=== PATIENT | female | born 1955 | race Caucasian/White ===

== ENCOUNTER 2020-11-06 22:12 | Emergency (ER) | payer MEDICARE, MEDICAID | END 2020-11-06 23:55 | disposition home or self-care (01) | LOC: CSHERS 22:12 | DX: Z43.1 Encounter for attention to gastrostomy (principal); I10 Essential (primary) hypertension; J44.9 Chronic obstructive pulmonary disease, unspecified; K21.9 Gastro-esophageal reflux disease without esophagitis; I25.2 Old myocardial infarction | CPT/HCPCS: 43762; 74018 ==

== ENCOUNTER 2020-11-20 20:48 | Inpatient (IN) | payer MEDICARE, MEDICAID ==
[2020-11-20 21:35] LABS: Hemoglobin 12.2 g/dL (12.0-15.5); Mean Corpuscular HGB CONC 33.1 g/dL (32.0-36.0); Mean Corpuscular Hemoglobin 30.4 pg (27.0-33.0); Mean Platelet Volume 10.2 fl (7.4-10.4); Platelet Count 255 10x3/uL (150-450); RBC Distribution Width 13.6 % (11.5-14.5); Red Blood Cell (RBC) Count 4.01 10x6/uL (3.90-5.03); White Blood Cell (WBC) Count 26.8 10x3/uL (3.5-10.5)
[2020-11-20 21:38] LABS: MDiff Complete? YES
[2020-11-20 21:39] LABS: ALT (SGPT) 14 U/L (8-55); AST (SGOT) 19 U/L (5-34); Albumin 3.5 g/dL (3.4-4.8); Alkaline Phosphatase 63 U/L (40-110); Anion Gap 17 mmol/L (10-20); BUN (Urea Nitrogen) 26 mg/dL (9.8-20.1); Bilirubin, Total 0.8 mg/dL (0.2-1.2); Calc. Creatinine Clearance 0 mL/min (70-130); Calcium 9.1 mg/dL (7.8-10.44); Carbon Dioxide 24 mmol/L (23-31); Chloride 99 mmol/L (98-107); Globulin 3.5 g/dL (2.4-3.5); Glucose 112 mg/dL (80-115); Potassium 4.6 mmol/L (3.5-5.1); Sodium 135 mmol/L (136-145)
[2020-11-20 22:51] LABS: Band 1 % (5-11); Lymphocytes 6 % (21-51); Monocytes 4 % (0-10); Neutrophil 87 % (42-75); Reactive Lymphocytes 2 % (0-10)
[2020-11-20 22:55] LABS: Platelet Morphology Comment Appears Adequate; RBC Morphology Normal
[2020-11-20] MEDS ORDERED: Cefepime 1 GM VIAL ONE (23:43)
[2020-11-20] MEDS ORDERED: Guaifenesin DM 100-10/5 ML UDCUP PO PRN (23:53)
[2020-11-20] MEDS ORDERED: Acetaminophen 325 MG TAB PO PRN (23:53)
[2020-11-20] MEDS ORDERED: Ondansetron PF 4 MG/2 ML Vial IVP PRN (23:53)
[2020-11-20] MEDS ORDERED: Calcium Carbonate 500 MG ChewTAB PO PRN (23:53)
[2020-11-21] MEDS ORDERED: Sodium Chloride 0.9% 1,000 ML IV SCH
[2020-11-21 00:07] LABS: Lactic Acid 1.4 mmol/L (0.5-2.2)
[2020-11-21 00:55] LABS: SARS-CoV-2 NAA Rapid Test Not Detected (NotDetected)
[2020-11-21] MEDS ORDERED: methylPREDNISolone Sod Succ 40 MG VIAL ONE (03:29)
[2020-11-21 06:16] LABS: Anion Gap 15 mmol/L (10-20); BUN (Urea Nitrogen) 22 mg/dL (9.8-20.1); Calc. Creatinine Clearance 0 mL/min (70-130); Calcium 8.5 mg/dL (7.8-10.44); Carbon Dioxide 20 mmol/L (23-31); Chloride 106 mmol/L (98-107); Glucose 93 mg/dL (80-115); Potassium 4.5 mmol/L (3.5-5.1); Sodium 136 mmol/L (136-145)
[2020-11-21] MEDS: Famotidine/PF 20 mg/2ml Vial SLOW IVP SCH ×2 (07:20→23:18)
[2020-11-21 07:49] LABS: Hemoglobin 11.2 g/dL (12.0-15.5); Mean Corpuscular HGB CONC 33.7 g/dL (32.0-36.0); Mean Corpuscular Hemoglobin 30.3 pg (27.0-33.0); Mean Corpuscular Volume 89.7 fl (81.6-98.3); Mean Platelet Volume 10.1 fl (7.4-10.4); Platelet Count 200 10x3/uL (150-450); RBC Distribution Width 13.8 % (11.5-14.5); White Blood Cell (WBC) Count 20.9 10x3/uL (3.5-10.5)
[2020-11-21] MEDS ORDERED: Loratadine 10 MG TAB PO PRN (08:05)
[2020-11-21] MEDS ORDERED: Sodium Chloride 0.65% Nasal 44 ML BOT EA NARE PRN (08:05)
[2020-11-21] MEDS ORDERED: hydrALAZINE 20 MG/ML VIAL SLOW IVP PRN (08:05)
[2020-11-21] MEDS ORDERED: GUAIFENESIN SF SOLN 200 MG/10 ML UDCUP PO PRN (08:05)
[2020-11-21] MEDS ORDERED: Ondansetron ODT 4 MG TAB SL PRN (08:05)
[2020-11-21] MEDS ORDERED: Loperamide HCl 2 MG CAP PO PRN (08:05)
[2020-11-21] MEDS ORDERED: Cepastat Lozenges 1 LOZ PO PRN (08:05)
[2020-11-21] MEDS ORDERED: Zolpidem Tartrate 5 MG TAB PO PRN (08:05)
[2020-11-21] MEDS ORDERED: Senokot S 8.6-50 MG TAB PO PRN (08:05)
[2020-11-21] MEDS ORDERED: Bisacodyl 5 MG TAB PO PRN (08:05)
[2020-11-21] MEDS ORDERED: Eucerin (Mineral Oil/Petrolatum,White) 30 gm Jar TOP PRN (08:05)
[2020-11-21 08:16] LABS: Bilirubin Neg (Negative); Blood, Urine 10 (Negative); Glucose, Urine (Dipstick) Normal (Negative); Ketone, Urine Negative (Negative); Leukocyte 100 (Negative); Nitrite Negative (Negative); Protein, Urine (Dipstick) Negative (Neg-Trace); Urobilinogen Normal mg/dL (Less than 2)
[2020-11-21 08:18] LABS: Clarity Clear (Clear)
[2020-11-21 08:20] LABS: Urine Culture Reflex No No
[2020-11-21 08:28] LABS: Bacteria/HPF 1+ HPF (None Seen)
[2020-11-21 08:57] LABS: MDiff Complete? YES
[2020-11-21 09:00] LABS: Band 16 % (5-11); Lymphocytes 2 % (21-51); Monocytes 1 % (0-10); Neutrophil 81 % (42-75)
[2020-11-21 09:01] LABS: Platelet Morphology Comment Appears Adequate
[2020-11-21 09:29] LABS: Strep pneumo Urine Ag NEGATIVE (NEGATIVE)
[2020-11-21 09:30] LABS: Legionella Urinary Ag Negative (Negative)
[2020-11-21] MEDS: Mometasone/Formoterol 200/5 60 PUFF INH SCH ×2 (09:34→20:29)
[2020-11-21] MEDS ORDERED: Piperacillin/Tazobactam 3.375 GM VIAL ONE (10:00)
[2020-11-21] MEDS ORDERED: Sodium Chloride 0.9% 100 ML ONE (10:00)
[2020-11-21] MEDS: Piperacillin/Tazobactam 3.375 GM in Sodium Chloride 0.9% 100 ML IVPB SCH ×3 (10:14→20:30)
[2020-11-21 10:19] VITALS: BMI 21.7
[2020-11-21] MEDS: Atorvastatin Calcium 40 MG TAB PO SCH (10:19)
[2020-11-21] MEDS: Clopidogrel Bisulfate 75 MG TAB PO SCH (10:20)
[2020-11-21] MEDS: Carvedilol 3.125 MG TAB PO SCH ×2 (10:20→16:11)
[2020-11-21] MEDS: Enoxaparin Sodium 30 MG/0.3 ML SYRINGE SC SCH (10:20)
[2020-11-21] MEDS: Aspirin 81 mg Enteric Coated Tablet PO SCH (10:20)
[2020-11-21] MEDS ORDERED: VANCOMYCIN 1.25 GM/250 ML BAG 1.25 GM in Premix Bag 1 BAG IVPB SCH (12:00)
[2020-11-21] MEDS: methylPREDNISolone Sod Succ 40 MG VIAL IVP SCH (16:11)
[2020-11-21] MEDS: traZODone HCl 50 MG TAB PO SCH (20:30)
[2020-11-21] MEDS: Vancomycin HCl 1 GM in Sodium Chloride 0.9% 250 ML 250 ML IVPB SCH (23:18)
[2020-11-21] MEDS ORDERED: Vancomycin HCl 1 GM, Admixture Fee 1 EACH in Sodium Chloride 0.9% 250 ML 250 ML IVPB SCH (23:59)
[2020-11-22] MEDS: methylPREDNISolone Sod Succ 40 MG VIAL IVP SCH ×2 (03:17→16:55)
[2020-11-22] MEDS: Piperacillin/Tazobactam 3.375 GM in Sodium Chloride 0.9% 100 ML IVPB SCH ×4 (03:17→20:32)
[2020-11-22 04:24] LABS: #Monocytes 0.5 10x3/uL (0.0-1.1); #Neutrophils 17.6 10x3/uL (1.5-8.4); %Basophils 0.2 % (0.0-2.0); %Lymphocytes 3.3 % (18.0-47.0); %Monocytes 2.5 % (0.0-10.0); %Neutrophils 92.1 % (40.0-75.0); Hemoglobin 12.1 g/dL (12.0-15.5); Mean Corpuscular HGB CONC 33.9 g/dL (32.0-36.0); Mean Corpuscular Hemoglobin 30.1 pg (27.0-33.0); Mean Corpuscular Volume 88.8 fl (81.6-98.3); Mean Platelet Volume 10.7 fl (7.4-10.4); Platelet Count 188 10x3/uL (150-450); RBC Distribution Width 13.3 % (11.5-14.5); Red Blood Cell (RBC) Count 4.02 10x6/uL (3.90-5.03); White Blood Cell (WBC) Count 19.1 10x3/uL (3.5-10.5)
[2020-11-22 04:38] LABS: Lactic Acid 0.9 mmol/L (0.5-2.2)
[2020-11-22 04:44] LABS: ALT (SGPT) 24 U/L (8-55); AST (SGOT) 37 U/L (5-34); Albumin 3.3 g/dL (3.4-4.8); Alkaline Phosphatase 71 U/L (40-110); Anion Gap 14 mmol/L (10-20); BUN (Urea Nitrogen) 15 mg/dL (9.8-20.1); Bilirubin, Total 0.6 mg/dL (0.2-1.2); Calc. Creatinine Clearance 61 mL/min (70-130); Calcium 9.5 mg/dL (7.8-10.44); Carbon Dioxide 21 mmol/L (23-31); Chloride 102 mmol/L (98-107); Globulin 3.7 g/dL (2.4-3.5); Glucose 185 mg/dL (80-115); Sodium 133 mmol/L (136-145)
[2020-11-22] MEDS: Mometasone/Formoterol 200/5 60 PUFF INH SCH ×2 (07:55→19:35)
[2020-11-22] MEDS: Enoxaparin Sodium 30 MG/0.3 ML SYRINGE SC SCH (10:37)
[2020-11-22] MEDS: Aspirin 81 mg Enteric Coated Tablet PO SCH (10:37)
[2020-11-22] MEDS: Amlodipine 10 MG TAB PO SCH (10:37)
[2020-11-22] MEDS: Carvedilol 3.125 MG TAB PO SCH ×2 (10:38→18:36)
[2020-11-22] MEDS: Clopidogrel Bisulfate 75 MG TAB PO SCH (10:38)
[2020-11-22] MEDS: Atorvastatin Calcium 40 MG TAB PO SCH (10:38)
[2020-11-22] MEDS: Nicotine 21 MG PATCH TD SCH (11:02)
[2020-11-22] MEDS: traZODone HCl 50 MG TAB PO SCH (20:32)
[2020-11-22] MEDS: Vancomycin HCl 1 GM in Sodium Chloride 0.9% 250 ML 250 ML IVPB SCH (23:38)
[2020-11-22] MEDS: Famotidine/PF 20 mg/2ml Vial SLOW IVP SCH (23:38)
[2020-11-23] MEDS: Piperacillin/Tazobactam 3.375 GM in Sodium Chloride 0.9% 100 ML IVPB SCH ×4 (03:13→20:00)
[2020-11-23] MEDS: methylPREDNISolone Sod Succ 40 MG VIAL IVP SCH (03:13)
[2020-11-23 05:45] LABS: #Monocytes 0.3 10x3/uL (0.0-1.1); #Neutrophils 9.6 10x3/uL (1.5-8.4); %Basophils 0.1 % (0.0-2.0); %Lymphocytes 6.6 % (18.0-47.0); %Neutrophils 88.9 % (40.0-75.0); Hemoglobin 11.8 g/dL (12.0-15.5); Mean Corpuscular HGB CONC 33.7 g/dL (32.0-36.0); Mean Corpuscular Hemoglobin 30.1 pg (27.0-33.0); Mean Corpuscular Volume 89.3 fl (81.6-98.3); Mean Platelet Volume 10.9 fl (7.4-10.4); Platelet Count 221 10x3/uL (150-450); RBC Distribution Width 13.1 % (11.5-14.5); Red Blood Cell (RBC) Count 3.92 10x6/uL (3.90-5.03); White Blood Cell (WBC) Count 10.8 10x3/uL (3.5-10.5)
[2020-11-23 06:06] LABS: Anion Gap 14 mmol/L (10-20); BUN (Urea Nitrogen) 15 mg/dL (9.8-20.1); Calc. Creatinine Clearance 66 mL/min (70-130); Calcium 8.9 mg/dL (7.8-10.44); Carbon Dioxide 23 mmol/L (23-31); Chloride 100 mmol/L (98-107); Glucose 228 mg/dL (80-115); Potassium 3.7 mmol/L (3.5-5.1); Sodium 133 mmol/L (136-145)
[2020-11-23] MEDS: Mometasone/Formoterol 200/5 60 PUFF INH SCH ×2 (07:28→20:00)
[2020-11-23] MEDS ORDERED: Enoxaparin Sodium 30 MG/0.3 ML SYRINGE ONE (08:02)
[2020-11-23] MEDS: Carvedilol 3.125 MG TAB PO SCH ×2 (09:54→16:44)
[2020-11-23] MEDS: Atorvastatin Calcium 40 MG TAB PO SCH (09:55)
[2020-11-23] MEDS: Clopidogrel Bisulfate 75 MG TAB PO SCH (09:55)
[2020-11-23] MEDS: Amlodipine 10 MG TAB PO SCH (09:55)
[2020-11-23] MEDS: Aspirin 81 mg Enteric Coated Tablet PO SCH (09:55)
[2020-11-23] MEDS: Enoxaparin Sodium 30 MG/0.3 ML SYRINGE SC SCH (09:55)
[2020-11-23] MEDS: Nicotine 21 MG PATCH TD SCH ×2 (09:56→10:50)
[2020-11-23] MEDS: Vancomycin HCl 750 MG in Sodium Chloride 0.9% 250 ML 250 ML IVPB SCH ×2 (13:20→23:46)
[2020-11-23] MEDS: Famotidine 20 MG TAB PO SCH (20:00)
[2020-11-23] MEDS: traZODone HCl 50 MG TAB PO SCH (20:00)
[2020-11-24] MEDS: Piperacillin/Tazobactam 3.375 GM in Sodium Chloride 0.9% 100 ML IVPB SCH ×4 (03:49→20:02)
[2020-11-24] MEDS: Mometasone/Formoterol 200/5 60 PUFF INH SCH ×2 (07:15→20:02)
[2020-11-24] MEDS: Enoxaparin Sodium 30 MG/0.3 ML SYRINGE SC SCH (09:13)
[2020-11-24] MEDS: predniSONE 20 MG TAB PO SCH (09:22)
[2020-11-24] MEDS: Amlodipine 10 MG TAB PO SCH (09:22)
[2020-11-24] MEDS: Famotidine 20 MG TAB PO SCH ×2 (09:22→20:01)
[2020-11-24] MEDS: Carvedilol 3.125 MG TAB PO SCH ×2 (09:23→17:53)
[2020-11-24] MEDS: Clopidogrel Bisulfate 75 MG TAB PO SCH (09:23)
[2020-11-24] MEDS: Atorvastatin Calcium 40 MG TAB PO SCH (09:23)
[2020-11-24] MEDS: Aspirin 81 mg Enteric Coated Tablet PO SCH (09:24)
[2020-11-24] MEDS: Nicotine 21 MG PATCH TD SCH (10:55)
[2020-11-24 11:22] LABS: Vancomycin, Trough 11.6 ug/mL
[2020-11-24] MEDS: Vancomycin HCl 750 MG in Sodium Chloride 0.9% 250 ML 250 ML IVPB SCH (11:40)
[2020-11-24] MEDS: traZODone HCl 50 MG TAB PO SCH (20:03)
[2020-11-25] MEDS: Vancomycin HCl 750 MG in Sodium Chloride 0.9% 250 ML 250 ML IVPB SCH ×3 (01:35→23:24)
[2020-11-25] MEDS: Piperacillin/Tazobactam 3.375 GM in Sodium Chloride 0.9% 100 ML IVPB SCH ×4 (02:57→20:26)
[2020-11-25 06:38] LABS: #Eosinphils 0.1 10x3/uL (0.0-0.5); #Monocytes 1.2 10x3/uL (0.0-1.1); #Neutrophils 4.8 10x3/uL (1.5-8.4); %Basophils 0.4 % (0.0-2.0); %Eosinophils 0.9 % (0.0-6.0); %Lymphocytes 20.6 % (18.0-47.0); %Monocytes 15.2 % (0.0-10.0); Hemoglobin 12.5 g/dL (12.0-15.5); Mean Corpuscular HGB CONC 34.4 g/dL (32.0-36.0); Mean Corpuscular Hemoglobin 30.4 pg (27.0-33.0); Mean Corpuscular Volume 88.3 fl (81.6-98.3); Mean Platelet Volume 10.5 fl (7.4-10.4); Platelet Count 251 10x3/uL (150-450); RBC Distribution Width 12.8 % (11.5-14.5); Red Blood Cell (RBC) Count 4.11 10x6/uL (3.90-5.03); White Blood Cell (WBC) Count 7.8 10x3/uL (3.5-10.5)
[2020-11-25 07:02] LABS: Anion Gap 12 mmol/L (10-20); BUN (Urea Nitrogen) 13 mg/dL (9.8-20.1); Calcium 8.8 mg/dL (7.8-10.44); Carbon Dioxide 28 mmol/L (23-31); Chloride 101 mmol/L (98-107); Glucose 104 mg/dL (80-115); Potassium 3.3 mmol/L (3.5-5.1); Sodium 138 mmol/L (136-145)
[2020-11-25 07:13] LABS: Calc. Creatinine Clearance 70 mL/min (70-130)
[2020-11-25] MEDS ORDERED: Potassium Chloride 20 MEQ TAB PO SCH (07:30)
[2020-11-25] MEDS: Mometasone/Formoterol 200/5 60 PUFF INH SCH ×2 (07:35→18:56)
[2020-11-25] MEDS: Enoxaparin Sodium 30 MG/0.3 ML SYRINGE SC SCH (08:32)
[2020-11-25] MEDS: Atorvastatin Calcium 40 MG TAB PO SCH (08:33)
[2020-11-25] MEDS: predniSONE 20 MG TAB PO SCH (08:33)
[2020-11-25] MEDS: Clopidogrel Bisulfate 75 MG TAB PO SCH (08:33)
[2020-11-25] MEDS: Amlodipine 10 MG TAB PO SCH (08:33)
[2020-11-25] MEDS: Aspirin 81 mg Enteric Coated Tablet PO SCH (08:33)
[2020-11-25] MEDS: Carvedilol 3.125 MG TAB PO SCH ×2 (08:33→17:55)
[2020-11-25] MEDS: Famotidine 20 MG TAB PO SCH ×2 (08:33→20:26)
[2020-11-25] MEDS: Nicotine 21 MG PATCH TD SCH (08:34)
[2020-11-25] MEDS: traZODone HCl 50 MG TAB PO SCH (20:26)
[2020-11-26] MEDS: Piperacillin/Tazobactam 3.375 GM in Sodium Chloride 0.9% 100 ML IVPB SCH (02:15)
[2020-11-26 04:38] LABS: Anion Gap 13 mmol/L (10-20); BUN (Urea Nitrogen) 11 mg/dL (9.8-20.1); Calc. Creatinine Clearance 67 mL/min (70-130); Calcium 8.8 mg/dL (7.8-10.44); Carbon Dioxide 26 mmol/L (23-31); Chloride 101 mmol/L (98-107); Glucose 99 mg/dL (80-115); Potassium 3.2 mmol/L (3.5-5.1); Sodium 137 mmol/L (136-145)
[2020-11-26] MEDS ORDERED: Potassium Chloride 20 MEQ TAB PO SCH (07:00)
[2020-11-26] MEDS: Mometasone/Formoterol 200/5 60 PUFF INH SCH (07:47)
[2020-11-26] MEDS ORDERED: Enoxaparin Sodium 30 MG/0.3 ML SYRINGE ONE (08:06)
[2020-11-26] MEDS ORDERED: Amoxicillin/Potassium Clav 875 MG TAB PO SCH (09:00)
[2020-11-26] MEDS: Clopidogrel Bisulfate 75 MG TAB PO SCH (09:10)
[2020-11-26] MEDS: predniSONE 20 MG TAB PO SCH (09:11)
[2020-11-26] MEDS: Famotidine 20 MG TAB PO SCH (09:11)
[2020-11-26] MEDS: Carvedilol 3.125 MG TAB PO SCH (09:11)
[2020-11-26] MEDS: Aspirin 81 mg Enteric Coated Tablet PO SCH (09:11)
[2020-11-26] MEDS: Amlodipine 10 MG TAB PO SCH (09:11)
[2020-11-26] MEDS: Atorvastatin Calcium 40 MG TAB PO SCH (09:11)
[2020-11-26] MEDS: Nicotine 21 MG PATCH TD SCH (09:12)
[2020-11-26] MEDS: Enoxaparin Sodium 30 MG/0.3 ML SYRINGE SC SCH (09:40)
[2020-11-26 12:19] VITALS: BP 121/66; TEMP 97.6
== END 2020-11-26 12:20 | disposition home health service (06) | DRG 871 ==
LOC: CSHERS 20:48 → CSHTELE 11-21 06:29
PROVIDERS: ADMIT Student in an Organized Health Care Education/Training Program; ATTEND Internal Medicine
DX: A41.9 Sepsis, unspecified organism (principal); J96.21 Acute and chronic respiratory failure with hypoxia; J69.0 Pneumonitis due to inhalation of food and vomit; N17.9 Acute kidney failure, unspecified; J44.1 Chronic obstructive pulmonary disease with (acute) exacerbation; J44.0 Chronic obstructive pulmonary disease with (acute) lower respiratory infection; Z20.822 Contact with and (suspected) exposure to COVID-19; K21.9 Gastro-esophageal reflux disease without esophagitis; I10 Essential (primary) hypertension; F17.210 Nicotine dependence, cigarettes, uncomplicated; I25.10 Atherosclerotic heart disease of native coronary artery without angina pectoris; Z95.5 Presence of coronary angioplasty implant and graft; Z79.01 Long term (current) use of anticoagulants; Z79.891 Long term (current) use of opiate analgesic; Z79.899 Other long term (current) drug therapy; J44.9 Chronic obstructive pulmonary disease, unspecified; Z85.89 Personal history of malignant neoplasm of other organs and systems; Z90.710 Acquired absence of both cervix and uterus; Z90.49 Acquired absence of other specified parts of digestive tract; Z90.89 Acquired absence of other organs; E86.1 Hypovolemia; J38.3 Other diseases of vocal cords; R65.20 Severe sepsis without septic shock; I65.21 Occlusion and stenosis of right carotid artery; E78.2 Mixed hyperlipidemia; E55.9 Vitamin D deficiency, unspecified; I73.9 Peripheral vascular disease, unspecified; Z71.6 Tobacco abuse counseling; E87.6 Hypokalemia
CPT/HCPCS: 36415; 36416; 71045; 71250; 80048; 80053; 80202; 81001; 82565; 83605; 83880; 84145; 84520; 85025; 87040; 87086; 87449; 87899; 93005; 94640; 94664; 94760; 96365; 96366; 96367; J0692; J1650; J2543; J2920; J3370; J3490; J7050; J7512; S0028; U0002

== ENCOUNTER 2021-07-13 14:02 | Emergency (ER) | payer MEDICARE, MEDICAID | END 2021-07-13 15:07 | disposition home or self-care (01) | LOC: CSHERS 14:02 | DX: J02.9 Acute pharyngitis, unspecified (principal); I10 Essential (primary) hypertension; I25.2 Old myocardial infarction; J44.9 Chronic obstructive pulmonary disease, unspecified; K21.9 Gastro-esophageal reflux disease without esophagitis; F17.200 Nicotine dependence, unspecified, uncomplicated | CPT/HCPCS: 99283 ==

== ENCOUNTER 2021-07-28 12:39 | Emergency (ER) | payer MEDICARE, MEDICAID ==
[2021-07-29 17:29] LABS: SARS-CoV-2 PCR by NAA DETECTED (NotDetected)
== END 2021-07-28 14:39 | disposition home or self-care (01) ==
LOC: CSHERS 12:39
DX: U07.1 COVID-19 (principal); J02.9 Acute pharyngitis, unspecified; I10 Essential (primary) hypertension; K21.9 Gastro-esophageal reflux disease without esophagitis; I25.2 Old myocardial infarction; J44.9 Chronic obstructive pulmonary disease, unspecified
CPT/HCPCS: 71045; 87804 ×2; 93005; U0003; U0005; 93010

== ENCOUNTER 2021-09-06 10:55 | Outpatient (CLI) | payer MEDICARE, MEDICAID | END 2021-09-06 10:56 | disposition home or self-care (01) | LOC: CSHCT 10:55 | PROVIDERS: ATTEND Family Medicine | DX: Z12.2 Encounter for screening for malignant neoplasm of respiratory organs (principal); Z87.891 Personal history of nicotine dependence; J44.9 Chronic obstructive pulmonary disease, unspecified; R91.8 Other nonspecific abnormal finding of lung field | CPT/HCPCS: 71271 ==

== ENCOUNTER 2021-12-14 21:46 | Emergency (ER) | payer MEDICARE, MEDICAID | END 2021-12-14 23:16 | disposition home or self-care (01) | LOC: CSHERS 21:46 | DX: J95.09 Other tracheostomy complication (principal); I10 Essential (primary) hypertension; I25.2 Old myocardial infarction; J44.9 Chronic obstructive pulmonary disease, unspecified; Z87.891 Personal history of nicotine dependence | CPT/HCPCS: J7620 ==

== ENCOUNTER 2021-12-15 18:58 | Emergency (ER) | payer MEDICARE, MEDICAID ==
[2021-12-15] MEDS ORDERED: Racepinephrine 2.25% 0.5 ML NEB ONE (19:45)
[2021-12-15] MEDS ORDERED: Sodium Chloride For Inhalation 0.9% 3 ML NEB ONE (19:46)
== END 2021-12-15 20:44 | disposition home or self-care (01) ==
LOC: CSHERS 18:58
DX: J95.09 Other tracheostomy complication (principal); I25.2 Old myocardial infarction; J44.9 Chronic obstructive pulmonary disease, unspecified; K21.9 Gastro-esophageal reflux disease without esophagitis; I10 Essential (primary) hypertension; Z87.891 Personal history of nicotine dependence
CPT/HCPCS: 93005; 93010; 94640

== ENCOUNTER 2022-03-19 08:53 | Outpatient (CLI) | payer MEDICARE, MEDICAID ==
[2022-03-19] MEDS ORDERED: Iopamidol 300 61% 100 ML VIAL FS ONE (09:42)
== END 2022-03-19 08:54 | disposition home or self-care (01) ==
LOC: CSHCT 08:53
PROVIDERS: ATTEND Otolaryngology
DX: C02.9 Malignant neoplasm of tongue, unspecified (principal); Q31.8 Other congenital malformations of larynx
CPT/HCPCS: 70491; 71260; 82565; Q9967

== ENCOUNTER 2022-04-17 18:31 | Emergency (ER) | payer MEDICARE, MEDICAID ==
[2022-04-17 20:21] LABS: SARS-CoV-2 NAA Rapid Test Not Detected (NotDetected)
[2022-04-17] MEDS ORDERED: Oseltamivir 75 MG CAP PER TUBE SCH (21:00)
== END 2022-04-17 21:10 | disposition home or self-care (01) ==
LOC: CSHERS 18:31
DX: J10.1 Influenza due to other identified influenza virus with other respiratory manifestations (principal); I10 Essential (primary) hypertension; E78.5 Hyperlipidemia, unspecified; I25.2 Old myocardial infarction; J44.9 Chronic obstructive pulmonary disease, unspecified; Z20.822 Contact with and (suspected) exposure to COVID-19; Z87.891 Personal history of nicotine dependence
CPT/HCPCS: 0240U; 71045; 99283

== ENCOUNTER 2022-06-16 07:42 | Outpatient (CLI) | payer MEDICARE, MEDICAID ==
[2022-06-16] MEDS ORDERED: Iopamidol 300 61% 100 ML VIAL FS ONE (13:46)
== END 2022-06-16 07:43 | disposition home or self-care (01) ==
LOC: CSHCT 07:42
PROVIDERS: ATTEND Otolaryngology
DX: C10.9 Malignant neoplasm of oropharynx, unspecified (principal); C02.9 Malignant neoplasm of tongue, unspecified; Z98.890 Other specified postprocedural states; R91.8 Other nonspecific abnormal finding of lung field
CPT/HCPCS: 70491; 71260; 82565

== ENCOUNTER 2022-07-02 09:41 | Outpatient (CLI) | payer MEDICARE, MEDICAID ==
[~2022-07-02 09:41] MED LIST: Iopamidol 300 61% 100 ML VIAL FS ONE
== END 2022-07-02 09:42 | disposition home or self-care (01) ==
LOC: CSHCT 09:41
PROVIDERS: ATTEND Physician Assistant Medical
DX: R10.9 Unspecified abdominal pain (principal); K44.9 Diaphragmatic hernia without obstruction or gangrene; Z93.1 Gastrostomy status; Z85.89 Personal history of malignant neoplasm of other organs and systems
CPT/HCPCS: 74177; 82565

== ENCOUNTER 2022-08-12 14:45 | Emergency (ER) | payer MEDICARE, MEDICAID ==
[2022-08-12] MEDS ORDERED: Nitroglycerin 2% Ointment 1 INCH/1 GM Packet ONE (14:52)
[2022-08-12] MEDS ORDERED: Lorazepam 2 MG/ML VIAL ONE (14:53)
[2022-08-12 15:07] LABS: #Basophils 0.1 10x3/uL (0.0-0.2); #Eosinphils 0.1 10x3/uL (0.0-0.5); #Monocytes 0.8 10x3/uL (0.0-1.1); #Neutrophils 3.7 10x3/uL (1.5-8.4); %Basophils 1.1 % (0.0-2.0); %Eosinophils 1.7 % (0.0-6.0); %Lymphocytes 25.6 % (18.0-47.0); %Monocytes 12.3 % (0.0-10.0); %Neutrophils 59.1 % (40.0-75.0); Hemoglobin 13.5 g/dL (12.0-15.5); Mean Corpuscular HGB CONC 33.2 g/dL (32.0-36.0); Mean Corpuscular Volume 81.4 fl (81.6-98.3); Mean Platelet Volume 11.2 fl (7.4-10.4); Platelet Count 209 10x3/uL (150-450); RBC Distribution Width 16.2 % (11.5-14.5); White Blood Cell (WBC) Count 6.3 10x3/uL (3.5-10.5)
[2022-08-12 15:22] LABS: ALT (SGPT) 24 U/L (8-55); AST (SGOT) 33 U/L (5-34); Albumin 4.5 g/dL (3.4-4.8); Alkaline Phosphatase 90 U/L (40-110); Anion Gap 18 mmol/L (10-20); BUN (Urea Nitrogen) 25 mg/dL (9.8-20.1); Bilirubin, Total 0.6 mg/dL (0.2-1.2); Calc. Creatinine Clearance 0 mL/min (70-130); Calcium 9.8 mg/dL (7.8-10.44); Carbon Dioxide 20 mmol/L (23-31); Chloride 96 mmol/L (98-107); Estimated GFR 54; Globulin 3.5 g/dL (2.4-3.5); Glucose 147 mg/dL (80-115); Potassium 4.8 mmol/L (3.5-5.1); Sodium 129 mmol/L (136-145)
[2022-08-12 16:10] LABS: SARS-CoV-2 NAA Rapid Test Not Detected (NotDetected)
[2022-08-12 18:01] LABS: Lactic Acid 0.9 mmol/L (0.5-2.2)
== END 2022-08-12 18:39 | disposition home or self-care (01) ==
LOC: CSHERS 14:45
DX: R07.9 Chest pain, unspecified (principal); R06.02 Shortness of breath; Z20.822 Contact with and (suspected) exposure to COVID-19; I25.2 Old myocardial infarction; J44.9 Chronic obstructive pulmonary disease, unspecified; K21.9 Gastro-esophageal reflux disease without esophagitis; Z87.891 Personal history of nicotine dependence
CPT/HCPCS: 0240U; 71045; 80053; 83605; 84484 ×2; 85025; 87040; 93005; 96361; 96374; 99285; 36415; J2060

== ENCOUNTER 2023-01-28 22:46 | Inpatient (IN) | payer MEDICARE, MEDICAID ==
[2023-01-28 23:16] LABS: Actual Bicarbonate (HCO3a) 26.3 mEq/L (22-28); Base Excess (BEa) 5.5 mEq/L (-2.0 to +3.0); CO2 Tension 26.4 mmHg (35.0-45.0); Calcium, Ionized (arterial) 1.08 mmol/L (1.12-1.30); Carboxyhemoglobin (COHb) 0.3 gm% (0.0-3.0); Hematocrit-ABG 30 % (36.0-47.0); Hemoglobin (Hb) 10.3 g/dL (12.0-16.0); O2 Tension (PaO2), arterial 51.5 mmHg (> 80.0); Potassium - ABG Lab 4.19 mmol/L (3.70-5.30); Puncture Site LRA; pH, Arterial 7.617 (7.35-7.45)
[2023-01-28] MEDS ORDERED: methylPREDNISolone Sod Succ 40 MG VIAL ONE (23:33)
[2023-01-28] MEDS ORDERED: methylPREDNISolone Sod Succ/PF 125 MG/2 ML VIAL ONE (23:33)
[2023-01-28] MEDS ORDERED: diphenhydrAMINE 50 MG/ML VIAL ONE (23:33)
[2023-01-28] MEDS ORDERED: Famotidine/PF 20 mg/2ml Vial ONE (23:34)
[2023-01-29 00:15] LABS: ALT (SGPT) 16 U/L (8-55); AST (SGOT) 29 U/L (5-34); Albumin 3.3 g/dL (3.4-4.8); Alkaline Phosphatase 71 U/L (40-110); Anion Gap 14 mmol/L (10-20); BUN (Urea Nitrogen) 17 mg/dL (9.8-20.1); Calc. Creatinine Clearance 0 mL/min (70-130); Calcium 8.9 mg/dL (7.8-10.44); Carbon Dioxide 23 mmol/L (23-31); Chloride 92 mmol/L (98-107); Estimated GFR 66; Globulin 2.9 g/dL (2.4-3.5); Glucose 132 mg/dL (80-115); Potassium 4.4 mmol/L (3.5-5.1); Protein, Total 6.2 g/dL (5.8-8.1); Sodium 125 mmol/L (136-145)
[2023-01-29 00:34] LABS: Hemoglobin 9.5 g/dL (12.0-15.5); MDiff Complete? YES; Mean Corpuscular HGB CONC 34.1 g/dL (32.0-36.0); Mean Corpuscular Hemoglobin 27.8 pg (27.0-33.0); Mean Corpuscular Volume 81.6 fl (81.6-98.3); Mean Platelet Volume 11.6 fl (7.4-10.4); Platelet Count 145 10x3/uL (150-450); RBC Distribution Width 15.4 % (11.5-14.5); Red Blood Cell (RBC) Count 3.42 10x6/uL (3.90-5.03); White Blood Cell (WBC) Count 10.2 10x3/uL (3.5-10.5)
[2023-01-29 00:38] LABS: SARS-CoV-2 NAA Rapid Test Not Detected (NotDetected)
[2023-01-29 00:50] LABS: Band 10 % (5-11); Lymphocytes 5 % (21-51); Monocytes 11 % (0-10); Neutrophil 74 % (42-75)
[2023-01-29 00:51] LABS: RBC Morph Comment Within Normal Limits
[2023-01-29 00:52] LABS: Platelet Adequacy Comment Appears Decreased
[2023-01-29] MEDS ORDERED: Ondansetron PF 4 MG/2 ML Vial IVP PRN (01:17)
[2023-01-29] MEDS ORDERED: Guaifenesin DM 100-10/5 ML UDCUP PO PRN (01:17)
[2023-01-29] MEDS ORDERED: Senokot S 8.6-50 MG TAB PO PRN (01:17)
[2023-01-29] MEDS ORDERED: Acetaminophen 325 MG TAB PO PRN (01:17)
[2023-01-29] MEDS ORDERED: Calcium Carbonate 500 MG ChewTAB PO PRN (01:17)
[2023-01-29] MEDS ORDERED: ALPRAZolam 0.25 MG TAB PO PRN (01:20)
[2023-01-29] MEDS ORDERED: traZODone HCl 50 MG TAB PO PRN (01:20)
[2023-01-29] MEDS ORDERED: Ipratropium/Albuterol 3 ML NEB NEB PRN (01:21)
[2023-01-29 02:48] VITALS: BMI 20.4
[2023-01-29] MEDS: Ampicillin/Sulbactam 3 GM in Sodium Chloride 0.9% 100 ML IVPB SCH ×4 (03:44→22:17)
[2023-01-29] MEDS: methylPREDNISolone Sod Succ 40 MG VIAL IVP SCH ×4 (03:44→23:00)
[2023-01-29 04:43] LABS: Actual Bicarbonate (HCO3v) 27.2 mEq/L (22-28); Base Excess 4.7 mEq/L (-2 - +2); Calcium, Ionized (venous) 1.08 mmol/L (1.16-1.32); Chloride (VBG) 91 mmol/L (98-106); Critical Notified Whom: RN; Hematocrit-VBG 29 % (36.0-47.0); Hemoglobin (Hb) 9.7 g/dL (11.7-16.1); Puncture Site Other Site; RapidComm Collect By LAB; pH (venous) 7.536 (7.32-7.43)
[2023-01-29 04:47] LABS: Hemoglobin 8.8 g/dL (12.0-15.5); Mean Corpuscular HGB CONC 34.4 g/dL (32.0-36.0); Mean Corpuscular Hemoglobin 27.9 pg (27.0-33.0); Mean Corpuscular Volume 81.3 fl (81.6-98.3); Mean Platelet Volume 11.2 fl (7.4-10.4); Platelet Count 142 10x3/uL (150-450); RBC Distribution Width 15.4 % (11.5-14.5); Red Blood Cell (RBC) Count 3.15 10x6/uL (3.90-5.03); White Blood Cell (WBC) Count 9.1 10x3/uL (3.5-10.5)
[2023-01-29 04:49] LABS: Anion Gap 13 mmol/L (10-20); BUN (Urea Nitrogen) 15 mg/dL (9.8-20.1); Calc. Creatinine Clearance 56 mL/min (70-130); Calcium 8.6 mg/dL (7.8-10.44); Carbon Dioxide 25 mmol/L (23-31); Chloride 93 mmol/L (98-107); Estimated GFR 75; Glucose 137 mg/dL (80-115); Potassium 3.9 mmol/L (3.5-5.1); Sodium 127 mmol/L (136-145)
[2023-01-29 05:03] LABS: MDiff Complete? YES
[2023-01-29 05:06] LABS: Band 13 % (5-11); Lymphocytes 6 % (21-51); Monocytes 13 % (0-10); Neutrophil 68 % (42-75)
[2023-01-29 05:08] LABS: Platelet Adequacy Comment Appears Decreased; RBC Morph Comment Within Normal Limits
[2023-01-29] MEDS: Ipratropium/Albuterol 3 ML NEB NEB SCH ×3 (07:15→19:30)
[2023-01-29] MEDS: Pantoprazole 40 MG VIAL IVP SCH (09:00)
[2023-01-29] MEDS: Carvedilol 3.125 MG TAB PO SCH ×2 (09:00→17:33)
[2023-01-29] MEDS: guaiFENesin ER 600 MG TAB PO SCH ×2 (09:00→22:21)
[2023-01-29] MEDS: Atorvastatin Calcium 40 MG TAB PO SCH (09:00)
[2023-01-29] MEDS: Mometasone/Formoterol 200/5 60 PUFF INH SCH ×2 (09:22→19:55)
[2023-01-29] MEDS: Hydrocodone-Acetamin 15 ML UDCUP PO PRN (22:18)
[2023-01-30] MEDS: Ipratropium/Albuterol 3 ML NEB NEB SCH ×2 (01:22→07:25)
[2023-01-30] MEDS: methylPREDNISolone Sod Succ 40 MG VIAL IVP SCH ×2 (04:16→09:43)
[2023-01-30] MEDS: Ampicillin/Sulbactam 3 GM in Sodium Chloride 0.9% 100 ML IVPB SCH ×3 (04:16→10:24)
[2023-01-30 05:03] LABS: #Monocytes 0.4 10x3/uL (0.0-1.1); #Neutrophils 4.8 10x3/uL (1.5-8.4); %Lymphocytes 6.8 % (18.0-47.0); %Monocytes 6.5 % (0.0-10.0); %Neutrophils 86.3 % (40.0-75.0); Hemoglobin 9.2 g/dL (12.0-15.5); Mean Corpuscular HGB CONC 33.9 g/dL (32.0-36.0); Mean Corpuscular Hemoglobin 27.7 pg (27.0-33.0); Mean Corpuscular Volume 81.6 fl (81.6-98.3); Mean Platelet Volume 11.3 fl (7.4-10.4); Platelet Count 177 10x3/uL (150-450); RBC Distribution Width 15.5 % (11.5-14.5); Red Blood Cell (RBC) Count 3.32 10x6/uL (3.90-5.03); White Blood Cell (WBC) Count 5.6 10x3/uL (3.5-10.5)
[2023-01-30 05:16] LABS: Anion Gap 16 mmol/L (10-20); BUN (Urea Nitrogen) 23 mg/dL (9.8-20.1); Calc. Creatinine Clearance 56 mL/min (70-130); Calcium 9.2 mg/dL (7.8-10.44); Carbon Dioxide 24 mmol/L (23-31); Chloride 95 mmol/L (98-107); Estimated GFR 76; Glucose 165 mg/dL (80-115); Potassium 3.9 mmol/L (3.5-5.1); Sodium 131 mmol/L (136-145)
[2023-01-30] MEDS: Mometasone/Formoterol 200/5 60 PUFF INH SCH (07:35)
[2023-01-30] MEDS ORDERED: Aspirin 81 mg Enteric Coated Tablet PO SCH (09:00)
[2023-01-30] MEDS: Pantoprazole 40 MG VIAL IVP SCH (09:43)
[2023-01-30] MEDS: Carvedilol 3.125 MG TAB PO SCH (09:43)
[2023-01-30] MEDS: Atorvastatin Calcium 40 MG TAB PO SCH (09:43)
[2023-01-30] MEDS: Hydrocodone-Acetamin 15 ML UDCUP PO PRN (10:00)
[2023-01-30] MEDS: guaiFENesin ER 600 MG TAB PO SCH (10:26)
[2023-01-30 12:21] VITALS: BP 150/68; TEMP 97.8
== END 2023-01-30 14:01 | disposition home or self-care (01) | DRG 205 ==
LOC: CSHERS 22:46 → CSHTELE 01-29 02:35
PROVIDERS: ADMIT Student in an Organized Health Care Education/Training Program; ATTEND Family Medicine
PROC: 4A133R1 Monitoring of Arterial Saturation, Peripheral, Percutaneous Approach (ICD-10-PCS; principal; 2023-01-28)
DX: J95.03 Malfunction of tracheostomy stoma (principal); J96.21 Acute and chronic respiratory failure with hypoxia; I50.22 Chronic systolic (congestive) heart failure; J44.1 Chronic obstructive pulmonary disease with (acute) exacerbation; E87.3 Alkalosis; E87.1 Hypo-osmolality and hyponatremia; D62 Acute posthemorrhagic anemia; E46 Unspecified protein-calorie malnutrition; S42.301D Unspecified fracture of shaft of humerus, right arm, subsequent encounter for fracture with routine healing; T17.990A Other foreign object in respiratory tract, part unspecified in causing asphyxiation, initial encounter; I77.9 Disorder of arteries and arterioles, unspecified; R13.12 Dysphagia, oropharyngeal phase; I25.10 Atherosclerotic heart disease of native coronary artery without angina pectoris; R00.0 Tachycardia, unspecified; I11.0 Hypertensive heart disease with heart failure; F41.9 Anxiety disorder, unspecified; R53.81 Other malaise; E78.5 Hyperlipidemia, unspecified; J38.01 Paralysis of vocal cords and larynx, unilateral; L89.151 Pressure ulcer of sacral region, stage 1; Z20.822 Contact with and (suspected) exposure to COVID-19; I25.2 Old myocardial infarction; K21.9 Gastro-esophageal reflux disease without esophagitis; W18.30XA Fall on same level, unspecified, initial encounter; Z95.818 Presence of other cardiac implants and grafts; Z79.82 Long term (current) use of aspirin; Z79.899 Other long term (current) drug therapy; Z98.890 Other specified postprocedural states; Z90.710 Acquired absence of both cervix and uterus; Z90.49 Acquired absence of other specified parts of digestive tract; Z90.89 Acquired absence of other organs; Z79.2 Long term (current) use of antibiotics; Z88.5 Allergy status to narcotic agent; Z87.891 Personal history of nicotine dependence; Z85.89 Personal history of malignant neoplasm of other organs and systems; Z92.3 Personal history of irradiation; Z92.21 Personal history of antineoplastic chemotherapy; Z93.1 Gastrostomy status; Z79.02 Long term (current) use of antithrombotics/antiplatelets; Z95.5 Presence of coronary angioplasty implant and graft; Z68.20 Body mass index [BMI] 20.0-20.9, adult
CPT/HCPCS: 36415; 36600; 71045; 80048; 80053; 82805; 83605; 83880; 84484; 85025; 87040; 93005; 94640; 94664; 94760; 94799; C9113; J0295; J1200; J2920; J2930; J3490; J7620; S0028

== ENCOUNTER 2023-07-13 14:36 | Day surgery (SDC) | payer MEDICARE, MEDICAID ==
[2023-07-13 11:40] LABS: #Basophils 0.1 10x3/uL (0.0-0.2); #Eosinphils 0.1 10x3/uL (0.0-0.5); #Monocytes 0.7 10x3/uL (0.0-1.1); #Neutrophils 5.9 10x3/uL (1.5-8.4); %Basophils 0.9 % (0.0-2.0); %Eosinophils 1.2 % (0.0-6.0); %Lymphocytes 9.1 % (18.0-47.0); %Monocytes 9.9 % (0.0-10.0); %Neutrophils 78.8 % (40.0-75.0); Hematocrit 37.2 % (34.9-44.5); Hemoglobin 12.1 g/dL (12.0-15.5); Mean Corpuscular HGB CONC 32.5 g/dL (32.0-36.0); Mean Platelet Volume 11.2 fl (7.4-10.4); Platelet Count 253 10x3/uL (150-450); RBC Distribution Width 15.4 % (11.5-14.5); Red Blood Cell (RBC) Count 4.48 10x6/uL (3.90-5.03); White Blood Cell (WBC) Count 7.5 10x3/uL (3.5-10.5)
[2023-07-13 11:44] LABS: Anion Gap 14 mmol/L (10-20); BUN (Urea Nitrogen) 19 mg/dL (9.8-20.1); Calc. Creatinine Clearance 0 mL/min (70-130); Calcium 9.7 mg/dL (7.8-10.44); Carbon Dioxide 26 mmol/L (23-31); Chloride 95 mmol/L (98-107); Estimated GFR 74; Glucose 112 mg/dL (80-115); Potassium 4.7 mmol/L (3.5-5.1); Sodium 130 mmol/L (136-145)
[2023-07-13 12:03] LABS: PTT 25.4 sec (22.0-33.0); Prothrombin Time 10.8 sec (9.5-12.1)
[~2023-07-13 14:36] MED LIST changes: +Adenosine 6 MG/2 ML VIAL ONE; +Atropine Sulfate 1 mg/1 ml Vial ONE; +Heparin 10,000 UNITS/ 10 ML VIAL ONE; +Lidocaine 1% (PF) 30 ML VIAL ONE; +Midazolam HCl 2 mg/2 ml Vial ONE; +Nitroglycerin 50 MG/250 ML BOT 250 ML ONE; +PHENYLEPHRINE-NS 100 MCG/ML 10 ML SYRINGE ONE; +Verapamil 5 MG/2 ML VIAL ONE; +fentaNYL 50 mcg/mL 1 mL Vial ONE
[2023-07-13 16:24] VITALS: BP 168/82; TEMP 98.6
[2023-07-13] MEDS ORDERED: FLU VACC QS2023(65UP)/MF59C/PF 60 MCG/0.5 ML SYRINGE IM ONE (16:30)
== END 2023-07-13 17:40 | disposition home or self-care (01) ==
LOC: CSHCCL 14:36
PROVIDERS: ATTEND Specialist
PROC: B205YZZ Plain Radiography of Left Heart using Other Contrast (ICD-10-PCS; principal; 2023-07-13)
PROC: 4A023N7 Measurement of Cardiac Sampling and Pressure, Left Heart, Percutaneous Approach (ICD-10-PCS; 2023-07-13)
DX: I25.10 Atherosclerotic heart disease of native coronary artery without angina pectoris (principal); I11.0 Hypertensive heart disease with heart failure; I50.22 Chronic systolic (congestive) heart failure; E78.2 Mixed hyperlipidemia; E11.51 Type 2 diabetes mellitus with diabetic peripheral angiopathy without gangrene; I70.293 Other atherosclerosis of native arteries of extremities, bilateral legs; I08.3 Combined rheumatic disorders of mitral, aortic and tricuspid valves; I25.2 Old myocardial infarction; J44.9 Chronic obstructive pulmonary disease, unspecified; F10.90 Alcohol use, unspecified, uncomplicated; Z88.5 Allergy status to narcotic agent; Z88.8 Allergy status to other drugs, medicaments and biological substances; Z98.61 Coronary angioplasty status; Z87.891 Personal history of nicotine dependence; Z79.82 Long term (current) use of aspirin; Z79.899 Other long term (current) drug therapy
CPT/HCPCS: 36216; 75710; 80048; 85025; 85610; 85730; 93458; C1769 ×2; C1894; 85027; 93005; 93010; 99152; J0153; J0461; J1644; J2001; J2250; J3010; Q9967

== ENCOUNTER 2023-07-18 00:08 | Emergency (ER) | payer MEDICARE, MEDICAID ==
[2023-07-18 00:44] LABS: #Monocytes 1.5 10x3/uL (0.0-1.1); #Neutrophils 9.2 10x3/uL (1.5-8.4); %Basophils 0.3 % (0.0-2.0); %Eosinophils 0.2 % (0.0-6.0); %Lymphocytes 7.1 % (18.0-47.0); %Monocytes 12.7 % (0.0-10.0); %Neutrophils 79.3 % (40.0-75.0); Hematocrit 21.7 % (34.9-44.5); Hemoglobin 7.1 g/dL (12.0-15.5); Mean Corpuscular HGB CONC 32.7 g/dL (32.0-36.0); Mean Corpuscular Hemoglobin 27.6 pg (27.0-33.0); Mean Corpuscular Volume 84.4 fl (81.6-98.3); Mean Platelet Volume 11.8 fl (7.4-10.4); Platelet Count 184 10x3/uL (150-450); RBC Distribution Width 16.7 % (11.5-14.5); Red Blood Cell (RBC) Count 2.57 10x6/uL (3.90-5.03); White Blood Cell (WBC) Count 11.6 10x3/uL (3.5-10.5)
[2023-07-18] MEDS ORDERED: Ibuprofen 200 MG TAB ONE ×2 (00:55→01:12)
[2023-07-18] MEDS ORDERED: Vancomycin 1 GM VIAL ONE (00:55)
[2023-07-18 00:56] LABS: ALT (SGPT) 15 U/L (8-55); AST (SGOT) 34 U/L (5-34); Albumin 2.8 g/dL (3.4-4.8); Alkaline Phosphatase 71 U/L (40-110); Anion Gap 14 mmol/L (10-20); BUN (Urea Nitrogen) 21 mg/dL (9.8-20.1); Bilirubin, Total 0.4 mg/dL (0.2-1.2); Calc. Creatinine Clearance 0 mL/min (70-130); Calcium 8.5 mg/dL (7.8-10.44); Carbon Dioxide 25 mmol/L (23-31); Chloride 93 mmol/L (98-107); Estimated GFR 75; Globulin 2.9 g/dL (2.4-3.5); Glucose 163 mg/dL (80-115); Potassium 4.7 mmol/L (3.5-5.1); Protein, Total 5.7 g/dL (5.8-8.1); Sodium 127 mmol/L (136-145)
[2023-07-18 01:09] LABS: Bilirubin Neg (Negative); Blood, Urine Negative (Negative); Glucose, Urine (Dipstick) Normal (Negative); Ketone, Urine Negative (Negative); Leukocyte Negative (Negative); Nitrite Negative (Negative); Protein, Urine (Dipstick) 30 mg/dl (Neg-Trace); Urobilinogen Normal mg/dL (Less than 2)
[2023-07-18 01:19] LABS: SARS-CoV-2 NAA Rapid Test Not Detected (NotDetected)
[2023-07-18 01:26] LABS: Clarity Clear (Clear)
[2023-07-18 01:39] LABS: Bacteria/HPF None Seen HPF (None Seen); CAUTI Indications for Culture Pelvic or flank pain; RBC/HPF None Seen HPF (0-3); Squamous Epithelial 0-3 HPF (0-3); Transitional Epithelial 0-3 HPF (None Seen); WBC/HPF None Seen HPF (0-3)
[2023-07-18 01:40] LABS: Urine Culture Reflex No No
[2023-07-18] MEDS ORDERED: Lorazepam 2 MG/ML VIAL ONE (02:23)
[2023-07-18] MEDS ORDERED: Piperacillin/Tazobactam 3.375 GM VIAL ONE (03:12)
[2023-07-18] MEDS ORDERED: fentaNYL 50 mcg/mL 1 mL Vial ONE (04:18)
[2023-07-18] MEDS ORDERED: Iopamidol 300 61% 100 ML VIAL FS ONE (10:42)
== END 2023-07-18 09:02 | disposition short-term general hospital (02) ==
LOC: CSHERS 00:08
DX: R50.82 Postprocedural fever (principal); J18.9 Pneumonia, unspecified organism; J44.9 Chronic obstructive pulmonary disease, unspecified; K21.9 Gastro-esophageal reflux disease without esophagitis; Z79.899 Other long term (current) drug therapy; Z79.82 Long term (current) use of aspirin
CPT/HCPCS: 36415; 71045; 80053; 81001; 83605; 85025; 86850; 86900; 86901; 87040; 93005; J2060; J2543; J3010; J3370